=== PATIENT | female | born 1985 | race Caucasian/White ===

== ENCOUNTER → 2017-10-20 | Outpatient (CLI) | payer MEDICAID ==
[~2017-10-20] MED LIST: ALPR0.25 PO; IBUP-1222 PO; STERIOD NAS; VENL75TA PO
[2017-10-20 10:48] LABS: MICROSCOPIC AUTO
[2017-10-20 10:53] LABS: CULTURE INDICATED? YES
[2017-10-20 10:58] LABS: ALANINE AMINOTRANSFERASE 17 U/L (12-78); ALBUMIN 4.2 g/dL (3.4-5.0); ANION GAP 6 mmol/L (5-15); CALCIUM 8.7 mg/dL (8.5-10.1); CHLORIDE 103 mmol/L (98-107); CREATININE 0.81 mg/dL (0.55-1.02)
[2017-10-20 11:00] LABS: BASOPHILS # (AUTO) 0.04 x10^3/uL (0-0.1); BASOPHILS % (AUTO) 1 % (0-1); EOSINOPHILS # (AUTO) 0.14 x10^3/uL (0-0.4); EOSINOPHILS % (AUTO) 2 % (1-7); LYMPHOCYTES # (AUTO) 1.93 x10^3/uL (1-3.4); LYMPHOCYTES % (AUTO) 27 % (22-44); MD NO; MEAN CORPUSCULAR HEMOGLOBIN 32.4 pg (27.0-34.8); MEAN CORPUSCULAR HGB CONC 34.5 g/dL (32.4-35.8); MEAN CORPUSCULAR VOLUME 94.1 fL (80-100); MEAN PLATELET VOLUME 9.1 fL (7.4-10.4); MONOCYTES # (AUTO) 0.35 x10^3/uL (0.2-0.8); MONOCYTES % (AUTO) 5 % (2-9); NEUTROPHILS # (AUTO) 4.69 x10^3/uL (1.8-6.8); NEUTROPHILS % (AUTO) 66 % (42-75); PLATELET COUNT 266 x10^3/uL (130-400); RED BLOOD COUNT 4.53 x10^6/uL (3.82-5.3); RED CELL DISTRIBUTION WIDTH 13.4 % (9.6-15.2)
[2017-10-20 11:03] LABS: ALKALINE PHOSPHATASE 67 U/L (45-117); BILIRUBIN,TOTAL 0.6 mg/dL (0.2-1.0)
== END | disposition home or self-care (01) ==
LOC: STAR 09:58
PROVIDERS: ATTEND Obstetrics & Gynecology
DX: Z01.818 Encounter for other preprocedural examination (principal)
CPT/HCPCS: 36415; 80053; 81001; 84702; 85025; 87086

== ENCOUNTER 2017-10-29 10:49 | Day surgery (SDC) | payer MEDICAID ==
[~2017-10-29] VITALS: Ht 167.6 cm; Wt 76.0 kg
[2017-10-29] MEDS ORDERED: LACTATED RINGERS 1,000 ML IV SCH (10:54)
[2017-10-29 11:22] VITALS: BP 117/75
[2017-10-29 11:53] LABS: HCG UR SG 1.023 (1.003-1.030)
[2017-10-29] MEDS ORDERED: ACETAMINOPHEN 500 MG TABLET ONE (12:25)
[2017-10-29] MEDS ORDERED: ONDANSETRON ODT 8 MG ONE (12:25)
[2017-10-29] MEDS ORDERED: SCOPOLAMINE PATCH, 1.5MG PATCH.TD72 TD ONE (12:25)
[2017-10-29] MEDS ORDERED: FENTANYL PF 100 MCG/2ML ONE ×3 (12:28→14:11)
[2017-10-29] MEDS ORDERED: MIDAZOLAM 1 MG/ML, 2ML ONE (12:28)
[2017-10-29] MEDS ORDERED: SUCCINYLCHOLINE 20 MG/ML, 10ML ONE (12:30)
[2017-10-29] MEDS ORDERED: ROCURONIUM 10MG/ML,5ML ONE (12:30)
[2017-10-29] MEDS ORDERED: PROPOFOL 10 MG/ML, 20ML ONE (12:30)
[2017-10-29] MEDS ORDERED: DEXAMETHASONE 4 MG/ML, 1ML ONE ×2 (12:31)
[2017-10-29] MEDS ORDERED: CEFAZOLIN 1,000 MG ONE (12:31)
[2017-10-29] MEDS ORDERED: LIDOCAINE GEL 2%, 5ML ONE (12:41)
[2017-10-29] MEDS ORDERED: ONDANSETRON 2MG/ML, 2ML ONE (13:12)
[2017-10-29] MEDS ORDERED: ROCURONIUM 10 MG/ML,10ML ONE (13:12)
[2017-10-29] MEDS ORDERED: KETOROLAC 30 MG/1 ML ONE (13:12)
[2017-10-29] MEDS ORDERED: BUPIVACAINE/PF-EPI 0.25% 1:200K INFIL ONE (13:37)
[2017-10-29] MEDS ORDERED: NEOSTIGMINE 1 MG/ML, 10ML ONE (13:48)
[2017-10-29] MEDS ORDERED: GLYCOPYRROLATE 0.4 MG/2 ML, 2ML ONE (13:48)
[2017-10-29] MEDS ORDERED: LABETALOL 5MG/ML, 20ML IV PRN (14:00)
[2017-10-29] MEDS ORDERED: MIDAZOLAM 1 MG/ML, 2ML IV PRN (14:00)
[2017-10-29] MEDS ORDERED: PROMETHAZINE 12.5 MG SUPP PR PRN (14:00)
[2017-10-29] MEDS ORDERED: ONDANSETRON ODT 8 MG PO PRN (14:00)
[2017-10-29] MEDS ORDERED: MEPERIDINE/PF 25MG/0.5ML IVPush PRN (14:00)
[2017-10-29] MEDS ORDERED: PROMETHAZINE 25 MG/ML, 1ML IV PRN (14:00)
[2017-10-29] MEDS ORDERED: HYDROmorphone 1 MG/ML, 1ML IV PRN (14:00)
[2017-10-29] MEDS ORDERED: ONDANSETRON 2MG/ML, 2ML IV PRN (14:00)
[2017-10-29] MEDS ORDERED: hydrALAzine 20 MG/ML, 1ML IV PRN (14:00)
[2017-10-29] MEDS ORDERED: ALBUTEROL SULFATE 2.5 MG/3 ML NPPB PRN (14:00)
[2017-10-29] MEDS ORDERED: OXYcodone 5 MG/5 ML ORAL.SOL UDC ONE (14:12)
[2017-10-29] MEDS: OXYcodone 5 MG/5 ML ORAL.SOL UDC PO PRN ×2 (14:13→16:50)
[2017-10-29] MEDS: FENTANYL PF 100 MCG/2ML IV PRN ×3 (14:15→14:42)
[2017-10-29] MEDS ORDERED: OXYcodone IR 5MG TABLET ONE (16:46)
== END 2017-10-29 17:15 | disposition home or self-care (01) ==
LOC: OUT 10:49
PROVIDERS: ATTEND Obstetrics & Gynecology
DX: Z30.2 Encounter for sterilization (principal); F32.9 Major depressive disorder, single episode, unspecified; G43.909 Migraine, unspecified, not intractable, without status migrainosus; Z98.890 Other specified postprocedural states
CPT/HCPCS: 58670; 81025; 88302; J0330; J0690; J1100; J1885; J2250; J2405; J2704; J2710; J3010; J7120